=== PATIENT | female | born 1965 | race Caucasian/White ===

== ENCOUNTER 2023-10-16 01:33 | Emergency (ER) | payer BC ==
[~2023-10-16] VITALS: Ht 160 cm; Wt 76.0 kg
[2023-10-16 01:38] VITALS: BP 115/88; O2SAT 100
[2023-10-16] MEDS ORDERED: HYDROCODONE/ACETAMINOPHEN 5/325MG TABLET PO STA (01:47)
[2023-10-16] MEDS ORDERED: NAPR-681 PO (03:57)
[2023-10-16] MEDS ORDERED: HYDR-4001 PO (03:57)
[2023-10-16] MEDS: HYDROCODONE/ACETAMINOPHEN 5/325MG TABLET PO NR (04:20)
[2023-10-16 04:42] VITALS: PULSE 86; RESP 14; TEMP 98.5
== END 2023-10-16 04:42 | disposition home or self-care (01) ==
LOC: ER 01:33
DX: S52.501A Unspecified fracture of the lower end of right radius, initial encounter for closed fracture (principal); W18.39XA Other fall on same level, initial encounter; Y93.89 Activity, other specified; Y92.89 Other specified places as the place of occurrence of the external cause; Y99.8 Other external cause status
CPT/HCPCS: 73110; 99283